=== PATIENT | male | born 1985 | race Caucasian/White ===

== ENCOUNTER → 2021-03-19 15:09 | Outpatient (BNVA) | payer MEDICARE, SELFPAY | PROVIDERS: Family Provider Nurse Practitioner Family; PCP Nurse Practitioner Family; Visit Provider Nurse Practitioner Family | DX: I10 Essential (primary) hypertension (principal); E03.9 Hypothyroidism, unspecified; R53.83 Other fatigue; R22.2 Localized swelling, mass and lump, trunk; R22.9 Localized swelling, mass and lump, unspecified; K04.7 Periapical abscess without sinus; R53.82 Chronic fatigue, unspecified | CPT/HCPCS: 80053; 84443; 85025 ==

== ENCOUNTER 2021-05-15 07:05 | Outpatient (CLI) | payer MEDICARE, SELFPAY ==
--- NOTE | 2021-05-15 07:15 | US_ITS ---
WS: [id number] ULTRASOUND THYROID TECHNIQUE: Ultrasound of the thyroid. CLINICAL INFORMATION: R79.89 - Other specified abnormal findings of blood chemi... COMPARISON: None. FINDINGS: Thyroid: Right and left thyroid lobes are normal in size and echotexture. Right thyroid lobe: 4.9 cm x 2.2 cm x 2.0 cm Left thyroid lobe: 5.1 cm x 1.9 cm x 1.9 cm. Hypoechoic nodule left thyroid measuring 7.6 x 6.4 x 4.3 mm Isthmus: 0.6 mm. Solid slightly hypoechoic nodule thyroid isthmus measuring 8.7 x 9.6 x 7.1 mm with a few echogenic calcifications. Cervical lymphadenopathy: None. US/US thyroid [id number] IMPRESSION: 1. Solid slightly hypoechoic nodule thyroid isthmus measuring 8.7 x 9.6 x 7.1 mm with a few echogenic calcifications. 2. Hypoechoic nodule left thyroid measuring 7.6 x 6.4 x 4.3 mm
--- NOTE | 2021-05-15 08:00 | US_ITS ---
WS: [id number] ULTRASOUND ABDOMEN LIMITED CLINICAL INFORMATION: R19.00 - Intra-abdominal and pelvic swelling, mass and brown... COMPARISON: None. FINDINGS: Ultrasound soft tissue area of concern left upper quadrant. No evidence of cystic or solid lesions. N o suspicious findings in the area of concern. US/US abdomen limited [id number] IMPRESSION: No suspicious findings
== END 2021-05-15 07:06 | disposition home or self-care (01) ==
LOC: US 07:06
PROVIDERS: PCP Nurse Practitioner Family; Visit Provider Nurse Practitioner Family
DX: R19.00 Intra-abdominal and pelvic swelling, mass and lump, unspecified site (principal); R79.89 Other specified abnormal findings of blood chemistry; E04.1 Nontoxic single thyroid nodule
CPT/HCPCS: 76536; 76705

== ENCOUNTER 2021-05-28 09:00 | Outpatient (CLI) | payer MEDICARE, SELFPAY ==
[2021-05-28] MEDS: iohexol 300 mg/mL 50 mL Btl PO (09:09)
--- NOTE | 2021-05-28 10:00 | CT_ITS ---
WS: [id number] CT ABDOMEN WITH CONTRAST HISTORY: LEFT upper abdominal pain for 6 to 8 years. Contiguous single phase 5 mm axial imaging performed to the abdomen. Oral contrast has been provided. Coronal and sagittal reformats are submitted. All CT scans at [facility] use at least one of these dose optimization techniques: automated exposure control; mA and/or kV adjustment per patient size (includes targeted exams where dose is matched to clinical indication); or iterative reconstruct ion. CONTRAST: Omnipaque 350; 95 mL IV. DLP: 840.98 mGycm COMPARISON: None available. Lower thorax: Nonspecific 3 mm nodule in the LEFT lower lobe. Heart size is normal. Small hiatal anel ia. Liver: Normal. No intrahepatic dilatation. Gallbladder: Normal. Pancreas: Normal. Spleen: Normal. Adrenals: Normal. Right kidney: Normal. Left kidney: Normal. Aorta: Normal. GI tract: As visualized are normal. No adenopathy or free fluid. Abdominal wall: No abdominal wall hernia or soft tissue masses. No explanation for the palpable area. Visualized osseous structures: Unremarkable. CT/CT abdomen w con* [id number] IMPRESSION: 1. No acute abdomen abnormality. 2. 3 mm noncalcified nodule LEFT lower lobe. Nonspecific. No further workup ne cessary unless patient has increased risk factors for malignancy.
[2021-05-28] MEDS: iohexol 350 mg/mL 100 mL Btl IV (10:02)
== END 2021-05-28 09:01 | disposition home or self-care (01) ==
LOC: RADWPI 09:04
PROVIDERS: PCP Nurse Practitioner Family; Visit Provider Nurse Practitioner Family
DX: R10.13 Epigastric pain; G89.29 Other chronic pain; R91.1 Solitary pulmonary nodule
CPT/HCPCS: 74160; Q9967

== ENCOUNTER → 2021-06-04 09:00 | Outpatient (BNVA) | payer MEDICARE, SELFPAY | PROVIDERS: PCP Nurse Practitioner Family; Visit Provider Internal Medicine | DX: E03.9 Hypothyroidism, unspecified (principal) | CPT/HCPCS: 84439; 84443 ==

== ENCOUNTER 2021-08-12 14:45 | Outpatient (CLI) | payer MEDICARE, SELFPAY ==
--- NOTE | 2021-08-12 15:00 | US_ITS ---
WS: [id number] THYROID ULTRASOUND HISTORY: Looking for a change in nodule COMPARISON: None available. Right lobe: 2.1 cm x 1.8 cm x 4.5 cm (w x ap x l). Volume: 9.2 cm3. Mildly prominent thyroid lobe with coarse echotexture. No mass or increased vascularity. No adenopath y. Left lobe: 1.7 cm x 1.6 cm x 4.6 cm (w x ap x l). Volume: 6.5 cm3. Normal size gland. Hypoechoic nodule with a few echogenic foci in the superior pole measures 8 x 6.4 mm. As compared to the prior examination no significant change in size. This nodule remains subcentim eter. Isthmus: 0.4 cm. There is a nodule in the isthmus measuring 8 x 9 x 6 mm. This is a hypoechoic nodule without significant increase in size. US/US thyroid [id number] IMPRESSION: 1. No increase in size of the LEFT thyroid and mid isthmus nodules. Recommend yearly follow-up ultrasound evaluation. 2. No adenopathy.
== END 2021-08-12 14:46 | disposition home or self-care (01) ==
LOC: RAD 14:49
PROVIDERS: PCP Nurse Practitioner Family; Visit Provider Internal Medicine
DX: E04.1 Nontoxic single thyroid nodule (principal); E03.9 Hypothyroidism, unspecified
CPT/HCPCS: 76536

== ENCOUNTER → 2021-10-09 08:46 | Outpatient (BNVA) | payer MEDICARE, SELFPAY | PROVIDERS: PCP Nurse Practitioner Family; Visit Provider Internal Medicine | DX: E04.1 Nontoxic single thyroid nodule (principal); E03.9 Hypothyroidism, unspecified; Z87.891 Personal history of nicotine dependence | CPT/HCPCS: 99214 ==

== ENCOUNTER → 2021-10-11 09:10 | Outpatient (BNVA) | payer MEDICARE, SELFPAY | PROVIDERS: PCP Nurse Practitioner Family; Visit Provider Internal Medicine | DX: E03.9 Hypothyroidism, unspecified (principal); E04.1 Nontoxic single thyroid nodule | CPT/HCPCS: 84439; 84443 ==

== ENCOUNTER → 2021-12-23 09:15 | Outpatient (BNVA) | payer MEDICARE, SELFPAY | PROVIDERS: PCP Nurse Practitioner Family; Visit Provider Nurse Practitioner Family | DX: M25.50 Pain in unspecified joint (principal) | CPT/HCPCS: 86038; 86431 ==

== ENCOUNTER → 2022-02-03 08:05 | Outpatient (BNVA) | payer MEDICARE, SELFPAY | PROVIDERS: PCP Nurse Practitioner Family; Visit Provider Internal Medicine Rheumatology | DX: M25.50 Pain in unspecified joint (principal); Z79.899 Other long term (current) drug therapy; S29.011A Strain of muscle and tendon of front wall of thorax, initial encounter; Y93.9 Activity, unspecified; G62.9 Polyneuropathy, unspecified | CPT/HCPCS: 73130; 73630; 80076; 82306; 82565; 85025; 85651; 86140; 86200; 99204 ==

== ENCOUNTER → 2022-05-13 08:50 | Outpatient (BNVA) | payer MEDICARE, SELFPAY | PROVIDERS: PCP Nurse Practitioner Family; Visit Provider Otolaryngology | DX: M95.0 Acquired deformity of nose (principal); J34.2 Deviated nasal septum; R06.83 Snoring; E66.9 Obesity, unspecified; Z68.39 Body mass index [BMI] 39.0-39.9, adult; Z87.891 Personal history of nicotine dependence | CPT/HCPCS: 99203 ==

== ENCOUNTER → 2023-01-05 09:09 | Outpatient (BNVA) | payer MEDICARE, SELFPAY | PROVIDERS: PCP Nurse Practitioner Family; Visit Provider Nurse Practitioner Family | DX: E03.9 Hypothyroidism, unspecified (principal); I10 Essential (primary) hypertension; Z79.899 Other long term (current) drug therapy; E11.9 Type 2 diabetes mellitus without complications | CPT/HCPCS: 80053; 80061; 84443 ==

== ENCOUNTER → 2023-01-12 09:30 | Outpatient (BNVA) | payer MEDICARE, SELFPAY | PROVIDERS: PCP Nurse Practitioner Family; Visit Provider Nurse Practitioner Family | DX: Z79.899 Other long term (current) drug therapy (principal) | CPT/HCPCS: 83036 ==

== ENCOUNTER 2023-02-13 08:41 | Outpatient (CLI) | payer MEDICARE, SELFPAY ==
--- NOTE | 2023-02-13 09:00 | US_ITS ---
WS: [id number] Thyroid ultrasound, 02/13/2023 Clinical Data: Thyroid Nodule Comparison: Thyroid ultrasound, 08/12/2021 Findings: The right lobe of thyroid measures 4.9 cm x 1.6 cm x 2.1 cm. The left lobe measures 5.2 cm x 1.6 cm x 1.7 cm. There is a solid nodule in the superior aspect of th e left thyroid measuring 0.55 x 0.77 x 0.88 cm. The isthmus measured 0.3 mm. There is an unchanged solid nodule measuring 0.61 x 0.78 x 0.83 cm. The echotexture of the thyroid is mixed. The isthmus nodule and left lobe nodules not changed US/US thyroid [id number] Impression: 1. Multinodular goiter. 2. Isthmus nodule and left lobe nodules unchanged.
== END 2023-02-13 08:42 | disposition home or self-care (01) ==
LOC: RAD 08:44
PROVIDERS: PCP Nurse Practitioner Family; Visit Provider Internal Medicine
DX: E11.9 Type 2 diabetes mellitus without complications (principal); E03.9 Hypothyroidism, unspecified; Z79.890 Hormone replacement therapy; Z79.84 Long term (current) use of oral hypoglycemic drugs; E04.1 Nontoxic single thyroid nodule
CPT/HCPCS: 36415; 76536; 80053; 84681; 86337; 86341; 99214

== ENCOUNTER → 2023-05-01 09:30 | Outpatient (BNVA) | payer MEDICARE, SELFPAY | PROVIDERS: PCP Nurse Practitioner Family; Visit Provider Internal Medicine | DX: E11.9 Type 2 diabetes mellitus without complications (principal); E03.9 Hypothyroidism, unspecified; E04.1 Nontoxic single thyroid nodule; Z79.890 Hormone replacement therapy; Z79.84 Long term (current) use of oral hypoglycemic drugs | CPT/HCPCS: 36415; 80053; 80061; 83036; 84439; 84443; 99214 ==

== ENCOUNTER 2023-11-03 14:37 | Outpatient (CLI) | payer MEDICARE, SELFPAY ==
[2023-11-03 15:44] LABS: Estmated Average Glucose 105; Hemoglobin A1C 5.3 % (4.0-6.0)
[2023-11-03 15:50] LABS: Alanine Aminotransferase 29 U/L (0-41); Albumin Level 4.6 g/dL (3.5-5.2); Alkaline Phosphatase 48 U/L (40-130); Anion Gap 12.5 (5-19); Aspartate Amino Transferase 17 U/L (0-40); Blood Urea Nitrogen 13 mg/dL (6-20); Calcium 10.4 mg/dL (8.5-10.5); Carbon Dioxide 30 mmol/L (22-29); Chloride 99 mmol/L (98-107); Chol HDL Ratio 5.07 mg/dL (1.0-5.00); Cholesterol 152 mg/dL (0-200); Globulin 3.4 g/dL (1.3-4.6); Glomerular Filtration Rate 107.6 mL/min (90-130); Glucose 78 mg/dL (65-115); HDL Cholesterol 30 mg/dL (60-100); LDL Cholesterol Calculated 93 mg/dL (50-129); Osmolality Calculated 285 mOsm/kg (285-295); Potassium 3.5 mmol/L (3.5-5.1); Sodium 138 mmol/L (136-145); Thyroid Stimulating Hormone 1.51 uIU/mL (0.27-4.20); Total Bilirubin 1.1 mg/dL (0.15-1.2); Triglycerides 144 mg/dL (0-150)
[2023-11-03 17:14] LABS: Creatinine Urine, Random 227 mg/dL (39-259); Microalbum Creatinine Ratio Ur 4 mg/dL (0-20); Microalbumin Random Urine 1 ug/dL (0-20)
== END 2023-11-03 14:38 | disposition home or self-care (01) ==
LOC: LAB 14:39
PROVIDERS: PCP Nurse Practitioner Family; Visit Provider Internal Medicine
DX: E11.9 Type 2 diabetes mellitus without complications (principal); E03.9 Hypothyroidism, unspecified; E04.1 Nontoxic single thyroid nodule
CPT/HCPCS: 36415; 80053; 80061; 82044; 83036; 84439; 84443

== ENCOUNTER → 2023-11-04 11:02 | Outpatient (BNVA) | payer MEDICARE, SELFPAY | PROVIDERS: PCP Nurse Practitioner Family; Visit Provider Internal Medicine | DX: E03.9 Hypothyroidism, unspecified (principal); E11.9 Type 2 diabetes mellitus without complications; E04.1 Nontoxic single thyroid nodule; Z79.890 Hormone replacement therapy | CPT/HCPCS: 99214 ==

== ENCOUNTER 2023-11-11 09:55 | Outpatient (CLI) | payer MEDICARE, SELFPAY ==
--- NOTE | 2023-11-11 10:45 | US_ITS ---
WS: [id number] THYROID ULTRASOUND HISTORY: thyroid nodule COMPARISON: 02/13/2023 Right lobe: 2.0 cm x 2.0 cm x 5.6 cm (w x ap x l). Volume: 10.31 cm3. Normal size and echotexture. No significant are dominant nodules are present. Left lobe: 1.7 cm x 1.5 cm x 5.6 cm (w x ap x l). Volume: 6.62 cm3. Hypoechoic nodule superior LEFT thyroid measures 9 x 7 x 9 mm. No change since the prior exam. Isthmus: 0.2 cm. RIGHT isthmus solid nodule measures 8 x 6 x 9 mm. No increase in size since the prio r study. IMPRESSION: 1. TI-RADS 2; no suspicious nodules. 2. Stable ultrasound thyroid since 02/13/2023.
== END 2023-11-11 09:56 | disposition home or self-care (01) ==
LOC: RAD 09:55
PROVIDERS: PCP Nurse Practitioner Family; Visit Provider Internal Medicine
DX: E04.1 Nontoxic single thyroid nodule (principal)
CPT/HCPCS: 76536

== ENCOUNTER → 2024-05-03 08:39 | Outpatient (BNVA) | payer MEDICARE, SELFPAY | PROVIDERS: PCP Nurse Practitioner Family; Visit Provider Internal Medicine | DX: E11.9 Type 2 diabetes mellitus without complications (principal); E03.9 Hypothyroidism, unspecified | CPT/HCPCS: 80053; 80061; 82043; 83036; 84439; 84443 ==

== ENCOUNTER → 2024-05-04 09:02 | Outpatient (BNVA) | payer MEDICARE, SELFPAY | PROVIDERS: PCP Nurse Practitioner Family; Visit Provider Internal Medicine | DX: E03.9 Hypothyroidism, unspecified (principal); E04.1 Nontoxic single thyroid nodule; E78.5 Hyperlipidemia, unspecified; Z79.890 Hormone replacement therapy; E11.9 Type 2 diabetes mellitus without complications | CPT/HCPCS: 99214 ==

== ENCOUNTER → 2024-07-05 08:42 | Outpatient (BNVA) | payer MEDICARE, SELFPAY | PROVIDERS: PCP Nurse Practitioner Family; Visit Provider Internal Medicine | DX: E03.9 Hypothyroidism, unspecified (principal) | CPT/HCPCS: 80061; 84439; 84443 ==

== ENCOUNTER → 2024-07-06 09:49 | Outpatient (BNVA) | payer MEDICARE, SELFPAY | PROVIDERS: PCP Nurse Practitioner Family; Visit Provider Internal Medicine | DX: E11.9 Type 2 diabetes mellitus without complications (principal); E03.9 Hypothyroidism, unspecified; E04.1 Nontoxic single thyroid nodule; E78.5 Hyperlipidemia, unspecified; L73.9 Follicular disorder, unspecified; Z79.890 Hormone replacement therapy | CPT/HCPCS: 99214 ==

== ENCOUNTER → 2025-01-03 08:45 | Outpatient (BNVA) | payer MEDICARE, SELFPAY | PROVIDERS: PCP Nurse Practitioner Family; Visit Provider Internal Medicine | DX: E11.9 Type 2 diabetes mellitus without complications (principal); E03.9 Hypothyroidism, unspecified; E78.5 Hyperlipidemia, unspecified | CPT/HCPCS: 80053; 80061; 82043; 83036; 84439; 84443 ==

== ENCOUNTER → 2025-01-04 09:04 | Outpatient (BNVA) | payer MEDICARE, SELFPAY | PROVIDERS: PCP Nurse Practitioner Family; Visit Provider Internal Medicine | DX: E11.9 Type 2 diabetes mellitus without complications (principal); L73.9 Follicular disorder, unspecified; E78.5 Hyperlipidemia, unspecified; E03.9 Hypothyroidism, unspecified; E04.1 Nontoxic single thyroid nodule | CPT/HCPCS: 99214 ==

== ENCOUNTER → 2025-07-04 08:53 | Outpatient (BNVA) | payer MEDICARE, SELFPAY | PROVIDERS: PCP Nurse Practitioner Family; Visit Provider Internal Medicine | DX: L73.9 Follicular disorder, unspecified (principal); E78.5 Hyperlipidemia, unspecified; E03.9 Hypothyroidism, unspecified; E11.9 Type 2 diabetes mellitus without complications; E04.1 Nontoxic single thyroid nodule | CPT/HCPCS: 80053; 80061; 82043; 83036; 84439; 84443 ==

== ENCOUNTER → 2025-07-05 08:25 | Outpatient (BNVA) | payer MEDICARE, SELFPAY | PROVIDERS: PCP Nurse Practitioner Family; Visit Provider Internal Medicine | DX: E11.9 Type 2 diabetes mellitus without complications (principal); E03.9 Hypothyroidism, unspecified; E04.1 Nontoxic single thyroid nodule; E78.5 Hyperlipidemia, unspecified; L73.9 Follicular disorder, unspecified | CPT/HCPCS: 99214 ==